=== PATIENT | female | born 1970 | race Caucasian/White ===

== ENCOUNTER 2017-03-17 02:26 | Emergency (ER) | payer BC ==
[2017-03-17] MEDS ORDERED: SULFAMETH-TMP DS STARTER PACK 2 TAB BTL PO STA (02:55)
[2017-03-17] MEDS ORDERED: cefTRIAXone 1,000 MG VIAL (IM USE) IM STA (02:55)
[2017-03-17] MEDS ORDERED: ACET/COD 300 MG/30 MG STARTER PACK 6 TAB BTL PO STA (02:57)
--- NOTE | 2017-03-17 02:58 | ED ---
Skin/Abscess/FB HPI - General Chief complaint: Skin/Abscess/Foreign Body Stated complaint: skin abcess Time Seen by Provider: 03/17/17 02:50 Source: patient, RN notes reviewed, old records reviewed Mode of arrival: ambulatory Limitations: no limitations - History of Present Illness Initial comments: This is a 46-year-old female chief complaint of a left Bartholin's cyst for approximately 3 weeks. Patient states that she started noticed the symptoms on December 28. 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 Gomez on January 07. She states at that time she did have a Bartholin's cyst drained. He states that they did not insert a Word catheter. She reports that afterward, she did feel some relief area. She states that in the past 10 days since having it drained she's noticed increased redness and pain and swelling over the right labia minora and majora. Patient states that she is able to urinate with no problem. She states that she's had a history of Bartholin's cyst in the past but never been this bad. Patient reports that she's never placed on antibiotics at this time. She states that on Saturday she did try to call her primary care provider in they stated that they can get her an appointment on Saturday. Patient denies any fever or chills. She denies any changes in bowel movement. She denies any abdominal pain. - Related Data Previous Rx's Medication Instructions Recorded HYDROcodone/APAP 5-325MG [[place] 1 tab PO Q4HR PRN #15 tab 03/17/17 5-325] Sulfamethox-Tmp 800-160Mg [Bactrim 1 tab PO Q12HR #14 tab 03/17/17 DS 800-160 mg] Allergies Allergy/AdvReac Type Severity Reaction Status Date / Time No Known Allergies Allergy Verified 03/17/17 02:34 Review of Systems ROS Statement: Those systems with pertinent positive or pertinent negative responses have been documented in the HPI. ROS Other: All systems not noted in ROS Statement are negative. Past Medical History Past Medical History: No Reported History History of Any Multi-Drug Resistant Organisms: None Reported Past Surgical History: Section Past Psychological History: No Psychological Hx Reported Smoking Status: Current every day smoker Past Alcohol Use History: None Reported Past Drug Use History: None Reported General Exam - General Exam Comments Initial Comments: Pleasant 46-year-old female. No distress. Limitations: no limitations General appearance: alert, in no apparent distress Head exam: Present: atraumatic, normocephalic, normal inspection Eye exam: Present: normal appearance, PERRL, EOMI. Absent: scleral icterus, conjunctival injection, periorbital swelling ENT exam: Present: normal exam, mucous membranes moist Neck exam: Present: normal inspection. Absent: tenderness, meningismus, lymphadenopathy Respiratory exam: Present: normal lung sounds bilaterally. Absent: respiratory distress, wheezes, rales, rhonchi, stridor Cardiovascular Exam: Present: regular rate, normal rhythm, normal heart sounds. Absent: systolic murmur, diastolic murmur, rubs, gallop, clicks GI/Abdominal exam: Present: soft, normal bowel sounds. Absent: distended, tenderness, guarding, rebound, rigid External exam: Present: erythema (Patient has significant erythema over her left labia majora. The area of erythema extends from the anus towards the clitoris. No evidence of fluctuant area for incision and drainage. No evidence of previous incision and drainage incision. ), swelling (Left labia majora swelling, ). Absent: normal external exam, lesions, lacerations, ecchymosis Course Vital Signs 03/17/17 03/17/17 02:31 03:08 Temperature 98.2 F 97.3 F L Pulse Rate 78 77 Respiratory 20 18 Rate Blood Pressure 142/61 109/55 O2 Sat by Pulse 98 98 Oximetry Medical Decision Making - Medical Decision Making This is a pleasant 46-year-old female chief complaint of the left Bartholin's cyst turned into an abscess. She had it drained on January 07 but no Word catheter was inserted. She was not placed on antibiotics at that time. Patient states that over the past and it became increasingly painful, swollen and red. Patient does have a significant erythema surrounding the left labia majora from the East clitoris. Patient is able to urinate without any problem. There is no area of fluctuation that would be available for incision and drainage. Patient only given 1 g of IM Rocephin for the infection as well as started on Bactrim up strength 1 tablet twice a day. Patient was advised to continue to do warm soaks. Rest that the patient that she still needs to follow -up with Dr. Gomez on Saturday for possible incision and drainage at that time. She'll be started pain medication as well. Patient understands treatment plan will comply. Return parameters were discussed. Discussed case with Dr. Myers. Disposition Clinical Impression: Bartholin's gland abscess Disposition: HOME SELF-CARE Condition: Good Instructions: Bartholin Cyst (ED) Additional Instructions: Patient has a follow-up with Dr. Gomez on Saturday. Completely anabiotic prescription. Return to the emergency department if any alarming signs or symptoms occur. Prescriptions: HYDROcodone/APAP 5-325MG [[place] 5-325] 1 tab PO Q4HR PRN #15 tab PRN Reason: Pain Sulfamethox-Tmp 800-160Mg [Bactrim DS 800-160 mg] 1 tab PO Q12HR #14 tab Referrals: Cecilio Mills Jr, DO [Primary Care Provider] - 1-2 days Bridget Gomez DO [Doctor of Osteopathic Medicine] - 1-2 days Time of Disposition: 02:56
[2017-03-17 03:10] VITALS: BP 109/55; PULSE 77; RESP 18; TEMP 97.3
== END 2017-03-17 03:20 | disposition home or self-care (01) ==
LOC: EC 02:26
DX: N75.1 Abscess of Bartholin's gland (principal); F17.200 Nicotine dependence, unspecified, uncomplicated
CPT/HCPCS: 99283; 96372; J0696; 99282

== ENCOUNTER 2017-03-17 12:29 | Emergency (ER) | payer BC ==
[2017-03-17 12:41] VITALS: RESP 18
--- NOTE | 2017-03-17 13:59 | ED ---
General Adult HPI - General Chief complaint: Recheck/Abnormal Lab/Rx Stated complaint: cyst Time Seen by Provider: 03/17/17 12:55 Source: patient, RN notes reviewed Mode of arrival: ambulatory Limitations: no limitations - History of Present Illness Initial comments: Patient's a 46-year-old female who presents emergency room today with a chief complaint of a Bartholin's cyst. Patient does admit that she's had these in the past. She states she's been her OB in the past and had them drained. She states she was seen here yesterday. She states that she does have an appointment with her OB doctor tomorrow. She states that earlier this morning late last night she began having some drainage coming from the area. States was not drained yesterday but it spontaneously began in the middle of night. Patient does admit that there is some relief the symptoms. She states she was trying to push and squeeze as much as possible. She states she is worried that she didn't want the drainage stopped so she wanted to be reevaluated today. Patient denies any other complaints. Patient denies any recent fever, chills, shortness of breath, chest pain, back pain, abdominal pain, nausea or vomiting, numbness or tingling, dysuria or hematuria, constipation or diarrhea, headaches or visual changes, or any other complaints. - Related Data Home Medications Medication Instructions Recorded Confirmed Acetaminophen-Codeine 300-30mg 1 tab PO Q8H PRN 03/17/17 03/17/17 [Tylenol #3] [place]/APAP/Caf/Cod 01-584-17-30 1 - 2 cap PO Q4H PRN 03/17/17 03/17/17 [Fioricet w/Cod 30-948-56-30MG] Ibuprofen [Motrin] 600 mg PO Q6HR PRN 03/17/17 03/17/17 Previous Rx's Medication Instructions Recorded HYDROcodone/APAP 5-325MG [[place] 1 tab PO Q4HR PRN #15 tab 03/17/17 5-325] Sulfamethox-Tmp 800-160Mg [Bactrim 1 tab PO Q12HR #14 tab 03/17/17 DS 800-160 mg] Allergies Allergy/AdvReac Type Severity Reaction Status Date / Time No Known Allergies Allergy Verified 04/23/17 13:19 Review of Systems ROS Statement: Those systems with pertinent positive or pertinent negative responses have been documented in the HPI. ROS Other: All systems not noted in ROS Statement are negative. Past Medical History Past Medical History: No Reported History Additional Past Medical History / Comment(s): migraines, torn retina History of Any Multi-Drug Resistant Organisms: None Reported Past Surgical History: Section Additional Past Surgical History / Comment(s): removal of inguinal lymph node Past Psychological History: No Psychological Hx Reported Smoking Status: Current every day smoker Past Alcohol Use History: None Reported Past Drug Use History: None Reported General Exam - General Exam Comments Initial Comments: General: The patient is awake and alert, in no distress, and does not appear acutely ill. Eye: Pupils are equal, round and reactive to light, extra-ocular movements are intact. No nystagmus. There is normal conjunctiva bilaterally. No signs of icterus. Ears, nose, mouth and throat: There are moist mucous membranes and no oral lesions. Neck: The neck is supple, there is no tenderness or JVD. Cardiovascular: There is a regular rate and rhythm. No murmur, rub or gallop is appreciated. Respiratory: Lungs are clear to auscultation, respirations are non-labored, breath sounds are equal. No wheezes, stridor, rales, or rhonchi. Musculoskeletal: Normal ROM, no tenderness. Strength 5/5. Sensation intact. Pulses equal bilaterally 2+. Neurological: A&O x 3. CN II-XII intact, There are no obvious motor or sensory deficits. Coordination appears grossly intact. Speech is normal. Skin: Skin is warm and dry and no rashes or lesions are noted. Psychiatric: Cooperative, appropriate mood & affect, normal judgment. : head of conservation Ladonna person for exam. Patient does have spontaneous drainage coming from left labia majora. There is moderate amount of drainage and moderate swelling to the left side with redness. Limitations: no limitations Course Vital Signs 03/17/17 12:37 Temperature 98.8 F Pulse Rate 100 Respiratory 18 Rate Blood Pressure 96/50 O2 Sat by Pulse 97 Oximetry Procedures - Procedures Initial comment: ER polygraph technician Ladonna present for procedure. Area was cleaned with Betadine. There is spontaneous drainage coming from left side. Pressure was placed to produce more drainage. Patient tolerated procedure well. Medical Decision Making - Medical Decision Making Was discussed with patient about following up with her OB doctor tomorrow with her scheduled appointment. Patient does have spontaneous drainage today. Patient does admit to improvement after drainage began. Disposition Clinical Impression: Bartholin's cyst Disposition: HOME SELF-CARE Condition: Good Instructions: Bartholin Cyst (ED) Additional Instructions: Please follow-up with her RN ONCOLOGY RESEARCH tomorrow as discussed. Please return for any other concerns. Referrals: Cecilio Mills Jr, DO [Primary Care Provider] - 1-2 days Bridget Gomez DO [Doctor of Osteopathic Medicine] - 1-2 days Time of Disposition: 13:58
[2017-03-17 14:30] VITALS: BP 95/49; PULSE 82; TEMP 98.6
== END 2017-03-17 14:25 | disposition home or self-care (01) ==
LOC: EC 12:29
DX: N75.0 Cyst of Bartholin's gland (principal); F17.200 Nicotine dependence, unspecified, uncomplicated
CPT/HCPCS: 99282

== ENCOUNTER 2020-08-04 05:21 | Emergency (ER) | payer BC, OTHER ==
[2020-08-04 05:45] VITALS: BP 98/62; PULSE 75; RESP 18; TEMP 97.8
[2020-08-04] MEDS ORDERED: AMOXIC-POT CLAV 875-125MG 1 EACH TAB PO STA (06:15)
--- NOTE | 2020-08-04 06:23 | ED ---
General Adult HPI - General Chief complaint: Animal Bite Stated complaint: Dog Bite Time Seen by Provider: 08/04/20 06:06 Source: patient, RN notes reviewed, old records reviewed Mode of arrival: ambulatory Limitations: no limitations - History of Present Illness Initial comments: 50-year-old female patient presented to ED for evaluation of dog bite from [place]. Patient reports that this is her friend's dog. Reports that she was bitten on the hand about 2 AM this morning. States her tetanus is up-to-date. Denies any other acute complaints. Systemic: Pt denies fatigue, fever/chills, rash. Pt denies weakness, night sweats, weight loss. Neuro: Pt denies headache, visual disturbances, syncope or pre-syncope. HEENT: Pt denies ocular discharge or irritation, otalgia, rhinorrhea, pharyngitis or notable lymphadenopathy. Cardiopulmonary: Pt denies chest pain, SOB, heart palpitations, dyspnea on exertion. Abdominal/GI: Pt denies abdominal pain, n/v/d. : Pt denies dysuria, burning w/ urination, frequency/urgency. Denies new onset urinary or bowel incontinence. MSK: Pt denies loss of strength or function in extremities. Neuro: Pt denies new onset weakness, paresthesias. - Related Data Home Medications Medication Instructions Recorded Confirmed Acetaminophen-Codeine 300-30mg 1 tab PO Q8H PRN 03/17/17 03/17/17 [Tylenol #3] Buta/APAP/Caf/Cod 68-001-46-30 1 - 2 cap PO Q4H PRN 03/17/17 03/17/17 [Fioricet w/Cod 42-998-12-30MG] Ibuprofen [Motrin] 600 mg PO Q6HR PRN 03/17/17 03/17/17 Previous Rx's Medication Instructions Recorded HYDROcodone/APAP 5-325MG [[place] 1 tab PO Q4HR PRN #15 tab 03/17/17 5-325] Sulfamethox-Tmp 800-160Mg [Bactrim 1 tab PO Q12HR #14 tab 03/17/17 DS 800-160 mg] Amoxicillin/Potassium Clav 1 each PO Q12HR 10 Days #20 tab 08/04/20 [Augmentin 875-125 Tablet] Allergies Allergy/AdvReac Type Severity Reaction Status Date / Time No Known Allergies Allergy Verified 08/04/20 05:45 Review of Systems ROS Statement: Those systems with pertinent positive or pertinent negative responses have been documented in the HPI. ROS Other: All systems not noted in ROS Statement are negative. Past Medical History Past Medical History: No Reported History Additional Past Medical History / Comment(s): migraines, torn retina History of Any Multi-Drug Resistant Organisms: None Reported Past Surgical History: Section Additional Past Surgical History / Comment(s): removal of inguinal lymph node Past Psychological History: Anxiety, Depression Smoking Status: Current every day smoker Past Alcohol Use History: None Reported, Occasional Past Drug Use History: None Reported General Exam - General Exam Comments Initial Comments: Constitutional: NAD, AOX3, Pt has pleasant affect. HEENT: NC/AT, trachea midline, neck supple, no lymphadenopathy. Posterior pharynx non erythematous, without exudates. External ears appear normal, without discharge. Mucous membranes moist. Eyes PERRLA, EOM intact. There is no scleral icterus. No pallor noted. Cardiopulmonary: RRR, no murmurs, rubs or gallops, no JVD noted. Lungs CTAB in anterior and posterior mccallum. No peripheral edema. Abdominal exam: Abdomen soft and non-distended. Neuro: CN II-XII grossly intact. MSK: 2 superficial lacerations of dorsal aspect of right hand. One approximately 3 cm skin tear 1 approximately 2 cm laceration. Full active range of motion of all digits of the hand. Neurovascularly intact. Vigorously irrigated. These are both very loosely approximated with a Steri-Strip. Full active ROM in upper and lower extremities. Limitations: no limitations Course Vital Signs 08/04/20 05:41 Temperature 97.8 F Pulse Rate 75 Respiratory 18 Rate Blood Pressure 98/62 O2 Sat by Pulse 97 Oximetry Medical Decision Making - Medical Decision Making 50-year-old female patient presents ED for dog bite. Physical exam does reveal 2 superficial lacerations. Patient declined plain film. Pt states that tetanus is up to date. Pt vital signs stated mild hypotension which patient states is her normal blood pressure. These wounds were vigorously irrigated and loosely approximated with a Steri-Strip. Patient discharged with Augmentin and strict return precautions. Pt declined dog bite form. Case discussed with Dr. De La Vega. Disposition Clinical Impression: Dog bite Disposition: HOME SELF-CARE Instructions (If sedation given, give patient instructions): Animal Bite (ED) Additional Instructions: Follow-up with primary care provider tomorrow. Take antibiotics as directed. Return to ER if any worsening symptoms. Remove Steri-Strip after approximately 7 days. Please monitor for signs and symptoms of infection including: redness, warmth, drainage, discharge. Please return to ED if these signs or symptoms occur, new signs or symptoms develop or if condition worsens in anyway. Prescriptions: Amoxicillin/Potassium Clav [Augmentin 875-125 Tablet] 1 each PO Q12HR 10 Days #20 tab Is patient prescribed a controlled substance at d/c from ED?: No Referrals: Jeff Dallas MD [Primary Care Provider] - 1-2 days
== END 2020-08-04 06:40 | disposition home or self-care (01) ==
LOC: EC 05:21
DX: S61.411A Laceration without foreign body of right hand, initial encounter (principal); F17.200 Nicotine dependence, unspecified, uncomplicated; W54.0XXA Bitten by dog, initial encounter
CPT/HCPCS: 99283

== ENCOUNTER → 2022-08-07 | Outpatient (CLI) | payer OTHER | LOC: CPPFTMAIN 09:33 | DX: R06.02 Shortness of breath (principal); R05.9 Cough, unspecified | CPT/HCPCS: 94060; 94726; 94729 ==

== ENCOUNTER → 2023-12-11 | Outpatient (CLI) | payer OTHER ==
--- NOTE | 2023-12-12 20:13 | MM ---
Reason for Exam: Screening (asymptomatic). Baseline mammogram. Patient History: Menarche at age 12. First Full-Term at age 32. Late child-bearing (after 30). Postmenopausal. Risk Values: Ashley 5 year model risk: 1.5%. NCI Lifetime model risk: 10.2%. Prior Study Comparison: Patient's first Mammogram. Tissue Density: The breast tissue is heterogeneously dense. This may lower the sensitivity of mammography. Findings: Analyzed By CAD. No significant mass, suspicious microcalcification, or other discrete abnormality is seen. Overall Assessment: Negative, BI-RAD 1 Management: Screening Mammogram of both breasts in 1 year. . Patient should continue monthly self-breast exams. A clinical breast exam by your physician is recommended on an annual basis. This exam should not preclude additional follow-up of suspicious palpable abnormalities. Note on Ashley scores and lifetime risk: 1. A Ashley score greater than 3% is considered moderate risk. If this is the case, consider specialist referral to assess eligibility for a risk reducing agent. 2. If overall lifetime risk for the development of breast cancer is 20% or higher, the patient may qualify for future screening with alternating mammogram and breast MRI. Electronically signed and approved by: David Bettencourt M.D. Radiologist
== END | disposition home or self-care (01) ==
LOC: RADMAMWWP 09:23
DX: Z12.31 Encounter for screening mammogram for malignant neoplasm of breast (principal); Z78.0 Asymptomatic menopausal state
CPT/HCPCS: 77067